=== PATIENT | male | born 1965 | race Caucasian/White ===

== ENCOUNTER 2018-03-23 13:00 | Emergency (ER) | payer OTHER ==
[~2018-03-23] VITALS: Ht 167.6 cm; Wt 88.3 kg
[2018-03-23] MEDS ORDERED: SODIUM CHLORIDE 0.9% 1,000ML IVBOLUS ONE (14:00)
[2018-03-23] MEDS ORDERED: FAMOTIDINE 20 MG/2 ML ONE (14:21)
[2018-03-23 14:24] LABS: BASOPHILS # (AUTO) 0.03 x10^3/uL (0-0.1); BASOPHILS % (AUTO) 0 % (0-1); EOSINOPHILS # (AUTO) 0.21 x10^3/uL (0-0.4); EOSINOPHILS % (AUTO) 3 % (1-7); LYMPHOCYTES % (AUTO) 21 % (22-44); MD NO; MEAN CORPUSCULAR HEMOGLOBIN 30.6 pg (27.5-34.5); MEAN CORPUSCULAR HGB CONC 33.7 g/dL (33.2-36.2); MEAN CORPUSCULAR VOLUME 90.6 fL (81-97); MEAN PLATELET VOLUME 8.4 fL (7.4-10.4); MONOCYTES % (AUTO) 8 % (2-9); NEUTROPHILS # (AUTO) 4.39 x10^3/uL (1.8-6.8); NEUTROPHILS % (AUTO) 67 % (42-75); PLATELET COUNT 226 x10^3/uL (130-400); RED BLOOD COUNT 4.12 x10^6/uL (4.38-5.82)
[2018-03-23] MEDS ORDERED: PANTOPRAZOLE 40 MG IV ONE (14:25)
[2018-03-23] MEDS ORDERED: PANTOPRAZOLE 40 MG IV IVPush ONE (14:30)
[2018-03-23 14:33] LABS: ALBUMIN 3.6 g/dL (3.4-5.0); ANION GAP 7 mmol/L (5-15); CALCIUM 8.5 mg/dL (8.5-10.1); CHLORIDE 110 mmol/L (98-107)
[2018-03-23 14:36] LABS: ALANINE AMINOTRANSFERASE 25 U/L (12-78); ALKALINE PHOSPHATASE 78 U/L (45-117); BILIRUBIN,TOTAL 0.5 mg/dL (0.2-1.0); CREATININE 1.13 mg/dL (0.7-1.3); TOTAL PROTEIN 7.7 g/dL (6.4-8.2)
[2018-03-23] MEDS ORDERED: OMNIPAQUE 350 MG/ML, 100ML BOTTLE ONE (15:28)
[2018-03-23 16:26] VITALS: BP 146/86
== END 2018-03-23 16:28 | disposition home or self-care (01) ==
LOC: ED 15:36
DX: K62.5 Hemorrhage of anus and rectum (principal); R42 Dizziness and giddiness
CPT/HCPCS: 36415; 74177; 80053; 85025; 86850; 86900; 96361; 96374; 99285; C9113; J7030; Q9967